=== PATIENT | male | born 1955 | race Caucasian/White ===

== ENCOUNTER 2019-12-21 05:39 | Day surgery (SDC) | payer BC, SELFPAY ==
[2019-12-21] VITALS (7 sets, daily range): BP systolic 110–151; BP diastolic 63–103; PULSE 59–73; RESP 15–18; TEMP 36.3–36.8; O2SAT 94–98; BMI 30.7
[2019-12-21] MEDS: Lactated Ringers 1,000 ML 100 ML IV (06:20)
--- NOTE | 2019-12-21 06:31 | PCM.HP.STD ---
Problem List (1) History of colon polyps Status: Acute History of Present Illness Date of Admission: 12/21/19 The patient is a 64 year old M who has a personal history of colon polyps. December 2016 he had 2 tubular adenomas and 1 sessile serrated polyp removed. He has no family history of colon cancer. He presents via open access today. No abdominal pain. No fever or chills or sweats or cough. He had an intentional 20 pound weight loss a year ago. He otherwise feels well Past Medical History Allergies No Known Allergies Allergy (Verified 12/21/19 06:05) Home Medications: Ambulatory Orders Medication Instructions Recorded Acetaminophen/Diphenhydramine 2 ea PO QHS 12/17/19 [Tylenol Pm Ex-Strength Caplet] Smoking Status: Former smoker Tobacco Use: Non-smoker Review of Systems Constitutional: Denies: Anorexia, Chills, Fever Cardiovascular: Denies: Chest Pain Respiratory: Denies: Cough Gastrointestinal: Denies: Abdominal Pain, Melena Endocrine: Denies: Change in Body Habitus VTE Information - Inpt Only VTE Present on Admission: No Patient Problems: Active and Suspected Problems History of colon polyps (Acute) - Physical Exam Vitals/I&O's: Vital Signs Temp Pulse Resp BP Pulse Ox 98.3 F 73 15 140/83 H 98 12/21/19 06:12 12/21/19 06:12 12/21/19 06:12 12/21/19 06:12 12/21/19 06:12 Oxygen Delivery Method Room Air Weight: 196 lb 6.91 oz Body Mass Index (BMI) 30.7 General: Alert, Oriented x3, Cooperative, No apparent distress HEENT: Atraumatic Oral: Moist Mucosa Lungs: Clear to auscultation, Normal air movement Cardiovascular: Regular rate, Regular Rhythm Abdomen: Bowel Sounds Present, Soft, Non Tender Current Medications Lactated Ringer's () 1,000 mls @ 100 mls/hr IV .Q10H VIDHYA Last Admin: 12/21/19 06:20 Dose: 100 mls/hr Documented by: Assessment/Plan All Active Problems History of colon polyps (Acute) I recommend proceeding with a colonoscopy with possible biopsy or polypectomy is indicated. He is aware of the technique, benefit, risk, alternatives. He has had an opportunity to ask and have questions answered. He presents via our open access program today. Abdoul Morfin M.D., F.A.C.S.
--- NOTE | 2019-12-21 07:24 | OP.COLON_ITS ---
Patient Name: Jamal Franklin Procedure Date: 12/21/2019 6:59 AM Date of : 1955 Age: 64 Procedure: Colonoscopy Indications: High risk colon cancer surveillance: Personal history of colonic polyps Providers: Abdoul Morfin MD Referring MD: Maikel Morfin Iii Medicines: Midazolam 3.5 mg IV, Meperidine 100 mg IV Patient Profile: Last Colonoscopy: December 2016. Complications: No immediate complications. Procedure: Pre-Anesthesia Assessment: - Prior to the procedure, a History and Physical was performed, and patient medications and allergies were reviewed. The patient's tolerance of previous anesthesia was also reviewed. The risks and benefits of the procedure and the sedation options and risks were discussed with the patient. All questions were answered, and informed consent was obtained. Prior Anticoagulants: The patient has taken no previous anticoagulant or antiplatelet agents. ASA Grade Assessment: II - A patient with mild systemic disease. After reviewing the risks and benefits, the patient was deemed in satisfactory condition to undergo the procedure. After I obtained informed consent, the scope was passed under direct vision. Throughout the procedure, the patient's blood pressure, pulse, and oxygen saturations were monitored continuously. The colonoscope was introduced through the anus and advanced to the cecum, identified by appendiceal orifice and ileocecal valve. The colonoscopy was performed without difficulty. The patient tolerated the procedure well. The quality of the bowel preparation was good. The ileocecal valve and the appendiceal orifice were photographed. Moderate Sedation: Moderate (conscious) sedation was personally administered by the endoscopist. The following parameters were monitored: oxygen saturation, heart rate, blood pressure, and response to care. Total physician intraservice time was 15 minutes. Scope In: 7:06:21 AM Scope Withdrawal Time 0 hours 6 minutes 2 seconds Scope Out: 7:15:49 AM Total Procedure Duration Time 0 hours 9 minutes 28 seconds Findings: The digital rectal exam findings include enlarged prostate. Multiple diverticula were found in the sigmoid colon and descending colon. The exam was otherwise without abnormality. Impression: - Enlarged prostate found on digital rectal exam. - Diverticulosis in the sigmoid colon and in the descending colon. - The examination was otherwise normal. - No specimens collected. Recommendation: - Discharge patient to home. - Resume previous diet. - Continue present medications. - Repeat colonoscopy in 5 years for surveillance. Mild prostate enlargement, patient to followup with primary care Procedure Code(s): --- Professional --- G0105, Colorectal cancer screening; colonoscopy on individual at high risk 80480, 59, Moderate sedation services provided by the same physician or other qualified health acute care clinical nurse specialist performing the diagnostic or therapeutic service that the sedation supports, requiring the presence of an independent trained observer to assist in the monitoring of the patient's level of consciousness and physiological status; initial 15 minutes of intraservice time, patient age 5 years or older Diagnosis Code(s): --- Professional --- Z86.010, Personal history of colonic polyps N40.0, Benign prostatic hyperplasia without lower urinary tract symptoms K57.30, Diverticulosis of large intestine without perforation or abscess without bleeding CPT copyright 2017 [employer]. All rights reserved. The codes documented in this report are preliminary and upon art instructor review may be revised to meet current compliance requirements. Abdoul Morfin MD 12/21/2019 7:24:11 AM This report has been signed electronically. Number of Addenda: 0 Note Initiated On: 12/21/2019 6:59 AM
--- NOTE | 2019-12-21 07:25 | OP.CCLET_ITS ---
12/21/2019 Maikel Morfin Iii [address] [place] [address] Re : Colonoscopy procedure for Jamal Callowayz Dear Dr. Morfin This procedure was performed on Saturday, December 21, 2019. My impressions and recommendations are as follows: Impressions : - Enlarged prostate found on digital rectal exam. - Diverticulosis in the sigmoid colon and in the descending colon. - The examination was otherwise normal. - No specimens collected. Recommendations : - Discharge patient to home. - Resume previous diet. - Continue present medications. - Repeat colonoscopy in 5 years for surveillance. Mild prostate enlargement, patient to followup with primary care My findings are described in the full procedure note, which is enclosed. If I can be of further assistance, please feel free to contact me at Doctor phone number(s): Work: . Sincerely, Abdoul Morfin MD 12/21/2019 7:24:11 AM This report has been signed electronically.
== END 2019-12-21 08:07 | disposition home or self-care (01) ==
LOC: EN 05:40 → AC 05:42
PROVIDERS: PCP Family Medicine; Referring Provider Family Medicine; Visit Provider Surgery
PROC: 0DJD8ZZ Inspection of Lower Intestinal Tract, Via Natural or Artificial Opening Endoscopic (ICD-10-PCS; CPT 45378; principal; 2019-12-21 06:55)
DX: Z12.11 Encounter for screening for malignant neoplasm of colon (principal); Z86.010 Personal history of colon polyps; N40.0 Benign prostatic hyperplasia without lower urinary tract symptoms; K57.30 Diverticulosis of large intestine without perforation or abscess without bleeding; Z87.891 Personal history of nicotine dependence
CPT/HCPCS: 45378; 99152; 99153; J7120

== ENCOUNTER → 2024-01-07 | Outpatient (CLI) | payer OTHER, SELFPAY ==
--- NOTE | 2024-01-07 13:06 | NEURO ---
NCS and/or EMG Patient Report Ordering Doctor: Arthur Price DATE OF SERVICE: 01/07/24 Arthur presents for electrodiagnostic testing of the upper limbs. He reports numbness and tingling in both hands. Electrodiagnostic findings: Right median motor nerve demonstrates prolonged distal latency with normal amplitude and reduced conduction velocity. Left median motor nerve demonstrates prolonged distal latency with normal amplitude and conduction velocity. Normal ulnar motor response bilaterally, including conduction across the elbow. Prolonged right median F?wave. Prolonged median sensory latency at the wrist bilaterally. Normal ulnar and radial sensory responses. Needle EMG testing was performed in the upper limbs. All muscles tested showed no evidence of denervation with normal motor unit action potentials. Electrodiagnostic impression: This is an abnormal study in the upper limbs. 1. Electrodiagnostic findings suggestive of bilateral median mononeuropathy. This is consistent with a moderate right and mild left carpal tunnel syndrome. Multi Select Codes Neurology Neurology Interp Codes: 60462-64 Musc test done w/n test comp (interp) (2) and 62278-90 Nrv cndj test 11-12 studies (interp)
== END | disposition home or self-care (01) ==
PROVIDERS: PCP Family Medicine; Referring Provider Family Medicine; Visit Provider Family Medicine
DX: M79.601 Pain in right arm (principal); M79.602 Pain in left arm; R20.0 Anesthesia of skin; R20.2 Paresthesia of skin; M50.122 Cervical disc disorder at C5-C6 level with radiculopathy
CPT/HCPCS: 95886; 95912

== ENCOUNTER 2024-12-17 07:36 | Day surgery (SDC) | payer MEDICARE, SELFPAY ==
[2024-12-17] VITALS (8 sets, daily range): BP systolic 107–133; BP diastolic 70–86; PULSE 60–70; RESP 14–20; TEMP 36.3–36.5; O2SAT 94–99; BMI 31.6
--- NOTE | 2024-12-17 08:18 | PCM.PRE.AN2 ---
ASA Classification* ASA Classification ASA Classification: 2 Assessment & Plan Anesthesia* Anesthesia Assessment Anesthesia Assessment: Discussed sedation and/or anesthesia options, risks, benefits, and alternatives with patient/parents/legal guardian/POA. Questions invited. The patient/parents/legal guardian/POA seems to understand and agrees to proceed with anesthesia plan. Reviewed the physical assessment, medical history, allergy history and patient home medications list prior to surgery/procedure/anesthetic and documented any changes. Performed airway and anesthesia risk assessments. Anesthesia Type Anesthesia Type: MAC Anesthesia Focused Assessment* Temperature: 97.7 F Pulse Rate: 68 Blood Pressure: 133/80 Respiratory Rate: 14 Pulse Ox: 99 Airway Assessment Mouth opens: >3 cm Mallampati Score: II Focused Labs Anesthesia Preop lab: CBC CHEMISTRY COAG Pre-Assessment Diagnosis/Proposed Procedure Planned Operative Procedure(s): COLONOSCOPY Anesthesia History Anesthesia History - library sales consultant: Anesthesia History - library sales consultant Hx Hospitalization No 12/16/24 12:03 Any Problems With Anesthesia No 12/16/24 12:03 Cholinesterase deficiency No 12/16/24 12:03 You/Your Family Experience No 12/16/24 12:03 fever (hyperthermia) with Relationship Recent Exposure to Contagious No 12/17/24 07:54 Disease Does patient have nerve No 12/16/24 12:03 stimulator Patient instructed to have device shut off --Does patient have Pacemaker or ICD? When Was Last Pacemaker Check QUESTION #4 FULL TEXT: You/Your Family Experience fever (hyperthermia) with Anesthesia Last Oral Intake Last Oral intake: Last Oral Intake NPO since 05:00 12/17/24 07:54 Meds taken in AM with sips of No 12/17/24 07:54 water? Meds patient instructed to take am of surgery PONV PONV - library sales consultant: PONV - library sales consultant Female No 12/16/24 12:03 HX of Motion Sickness No 12/16/24 12:03 HX of N/V After Surgery No 12/16/24 12:03 Non-Smoker Yes 12/16/24 12:03 Duration of Surgery greater No 12/16/24 12:03 than 60 minutes Number of Risk Factors 1 12/16/24 12:03 PONV Score Low Risk 12/16/24 12:03 Height & Weight Height & Weight: Anesthesia: Height & Weight Height 5 ft 7 in 12/17/24 07:54 Weight: 91.5 kg 12/17/24 07:54 Body Mass Index (BMI) 31.6 12/17/24 07:54 Respiratory Assessment Respiratory Assessment - library sales consultant: Respiratory Tract Infection Hx - library sales consultant Hx Respiratory Tract Infection No 12/16/24 12:03 STOP Sleep Apnea STOP Sleep Apnea - library sales consultant: STOP Sleep Apnea - library sales consultant Hx Hypertension No 12/16/24 12:03 Hx Sleep Apnea No 12/16/24 12:03 CPAP BIPAP Do you snore loudly (louder No 12/16/24 12:03 than talking or can be heard Do you often feel tired/ No 12/16/24 12:03 fatigued/ sleepy during daytime? Has anyone observed you stop No 12/16/24 12:03 breathing during sleep? STOP Results Negative 12/16/24 12:03 QUESTION #5 FULL TEXT : Do you snore loudly (louder than talking or can be heard through closed doors)? Tobacco Use History Tobacco Use History - library sales consultant: Tobacco Use History - library sales consultant Tobacco Use Smoking Status Never smoker 12/16/24 12:03 Hx Tobacco Use No 12/16/24 12:03 Years Smoking Packs Smoked per Day Smoking Cessation Date was within the last 15 years Hx Smoking Cessation Date Hx Smoking Cessation Counseling Hematologic Medial History Hematologic Hx - library sales consultant: Hematologic Medical Hx - manufacturers service representative Hx of Blood Transfusion No 12/16/24 12:03 Hx of Transfusion in last 3 No 12/16/24 12:03 Months Date of Last Transfusion (if within last 3 months) Ever experience any problems No 12/16/24 12:03 with transfusion(s)? Specify any problems Hx of Preganancy in last 3 N/A 12/16/24 12:03 Months Nurse Filling Out Transfusion VLEHMAN 12/16/24 12:03 & Questions: Date: 12/16/24 12/16/24 12:03 Time: 12:09 12/16/24 12:03 Patient unable to answer at this time (ie. confused, unrespo /Reproduction History /Reproductive History - library sales consultant: /Reproductive Hx- library sales consultant Hx Now No 12/16/24 12:03 Gestational Age (in weeks): EDC: Hx Hx Para Hx Section SAB PFSH Medical History Wears hearing aid Alcohol use Arthritis Non-smoker Home Medications ?Medication ?Instructions ?Recorded ?Last Taken ?Type diphenhydramine 25 2 ea PO QHS 12/17/19 12/15/24 History mg-acetaminophen 500 mg tablet Allergy/AdvReac Type Severity Reaction Status Date / Time No Known Allergies Allergy Verified 12/17/24 07:54 Surgical History Hx of colonoscopy Social History household members: spouse current occupational status: retired Smoking Status: Never smoker substance use type: does not use Review of Systems (Anesthesia) ROS Narrative System reviewed and no additional complaints, except as documented.
--- NOTE | 2024-12-17 08:38 | PCM.HP.STD ---
HPI - General General Date of Admission: 12/17/24 Date of Service: 12/17/24 Chief Complaint: Colonoscopy HPI Narrative HARSH MELVIN, is a 69 M who presents for elective surveillance colonoscopy. Patient has a history of colon polyps. His last colonoscopy was 5 years ago. The colonoscopy was negative for any polyps. He did have polyps in the past. No recent GI issues or complaints. No family history of colon cancer. PFSH Medical History Wears hearing aid Alcohol use Arthritis Non-smoker Home Medications ?Medication ?Instructions ?Recorded ?Last Taken ?Type diphenhydramine 25 2 ea PO QHS 12/17/19 12/15/24 History mg-acetaminophen 500 mg tablet Allergy/AdvReac Type Severity Reaction Status Date / Time No Known Allergies Allergy Verified 12/17/24 07:54 Surgical History Hx of colonoscopy Social History household members: spouse current occupational status: retired Smoking Status: Never smoker substance use type: does not use Vital Signs Vital Signs Vital Signs: 12/17/24 07:54 12/17/24 07:54 12/17/24 08:18 Temperature 97.7 F L 97.7 F L Temperature Source Temporal Pulse Rate 68 68 Respiratory Rate 14 14 Respiratory Pattern Normal Blood Pressure 133/80 H 133/80 H Blood Pressure Mean 97 Blood Pressure Source Monitor Blood Pressure Position Semi-Fowlers Blood Pressure Location Left Arm Pulse Ox 99 99 Oxygen Delivery Method Room Air Weight Weight: 201 lb 11.567 oz Body Mass Index (BMI) 31.6 Physical Exam Const alert, oriented x3 and no apparent distress Assessment & Plan Assessment/Plan (1) History of colon polyps: PLAN: Plan The patient is a 69-year-old male who is being seen today for surveillance colonoscopy. He does have a history of colon polyps. Last colonoscopy was 5 years ago. We discussed the details of the planned procedure as well as risks benefits and alternatives. He wishes to proceed. This will begin momentarily Charges/Coding Visit Charges Inpatient E&M: 84249 Init Hosp L1
--- NOTE | 2024-12-17 09:00 | EGD_PTH ---
PATIENT: HARSH MELVIN LOC: EN U#:[id number] AGE/SX: 69/M ROOM: RE12/17/[address]: Dr. Arturo Patel MD : 1955 BED: DIS: 12/17/2024 SPEC #: [id number] RECD: 12/17/24 13:36 STATUS: KEERTHI REQ #: [id number] ANGÉLICA: 12/17/24 09:[address]: Arturo Patel DEPT: SURGICAL PATHOLOGY RECD BY: Adrian Herrera ENTERED: 12/17/24 13:37 SP TYPE: EGD BIOPSY RUPESH DR: Dr. Arthur Price MD Tissues: A - Sigmoid colon biopsy Procedures: Surgery Specimen Level IV HEADER OPERATION: Colonoscopy with biopsy PRE-OP DIAGNOSIS: Surveillance colonoscopy TISSUE SUBMITTED: A- Sigmoid biopsy MICROSCOPIC DIAGNOSIS A. Sigmoid colon, biopsy: * Tubular adenoma. MICROSCOPIC DESCRIPTION Slides are reviewed. GROSS DESCRIPTION A. Received in fixative is one container labeled with the patient's name and designated Sigmoid biopsy. The specimen consists of one irregular fragment of light ivey soft tissue that measures 0.8 x 0.2 x 0.2 cm. The specimen is totally submitted in one cassette. 12/17/2024 CPT:53762
--- NOTE | 2024-12-17 09:03 | OP.COLON_ITS ---
Patient Name: Jamal Franklin Procedure Date: 12/17/2024 8:35 AM Date of : 1955 Age: 69 Procedure: Colonoscopy Indications: High risk colon cancer surveillance: Personal history of colonic polyps Providers: Arturo Patel MD Referring MD: Arthur Price MD Medicines: Monitored Anesthesia Care Patient Profile: Refer to note in patient chart for documentation of history and physical. Last Colonoscopy: 5 years ago. Complications: No immediate complications. Estimated blood loss: Minimal. Procedure: Pre-Anesthesia Assessment: - Prior to the procedure, a History and Physical was performed, and patient medications and allergies were reviewed. The patient's tolerance of previous anesthesia was also reviewed. The risks and benefits of the procedure and the sedation options and risks were discussed with the patient. All questions were answered, and informed consent was obtained. Prior Anticoagulants: The patient has taken no anticoagulant or antiplatelet agents. ASA Grade Assessment: II - A patient with mild systemic disease. After reviewing the risks and benefits, the patient was deemed in satisfactory condition to undergo the procedure. After I obtained informed consent, the scope was passed under direct vision. Throughout the procedure, the patient's blood pressure, pulse, and oxygen saturations were monitored continuously. The adult colonoscope was introduced through the anus and advanced to the cecum, identified by appendiceal orifice and ileocecal valve. The ileocecal valve, appendiceal orifice, and rectum were photographed. The entire colon was well visualized. The colonoscopy was performed without difficulty. The patient tolerated the procedure well. The quality of the bowel preparation was adequate. Moderate Sedation: See the other procedure note for documentation of moderate sedation with intraservice time. Scope In: 8:45:26 AM Scope Withdrawal Time 0 hours 8 minutes 56 seconds Scope Out: 8:58:32 AM Total Procedure Duration Time 0 hours 13 minutes 6 seconds Findings: The perianal and digital rectal examinations were normal. A 3 mm polyp was found in the sigmoid colon. The polyp was semi-sessile. The polyp was removed with a cold biopsy forceps. Resection and retrieval were complete. Verification of patient identification for the specimen was done by the nurse using the patient's name, date and medical record number. Estimated blood loss was minimal. The exam was otherwise without abnormality on direct and retroflexion views. Impression: - One 3 mm polyp in the sigmoid colon, removed with a cold biopsy forceps. Resected and retrieved. - The examination was otherwise normal on direct and retroflexion views. Recommendation: - Discharge patient to home (ambulatory). - High fiber diet indefinitely. - Await pathology results. - Repeat colonoscopy in 5 years for surveillance. - Return to my office PRN. - Continue present medications. Procedure Code(s): --- Professional --- 02810, Colonoscopy, flexible; with biopsy, single or multiple Diagnosis Code(s): --- Professional --- D12.5, Benign neoplasm of sigmoid colon Z86.010, Personal history of colonic polyps CPT copyright 2021 [employer]. All rights reserved. The codes documented in this report are preliminary and upon electric organ inspector and repairer review may be revised to meet current compliance requirements. Arturo Patel MD 12/17/2024 9:03:27 AM This report has been signed electronically. Number of Addenda: 0 Note Initiated On: 12/17/2024 8:35 AM
--- NOTE | 2024-12-17 09:04 | OP.CCLET_ITS ---
12/17/2024 Arthur Price MD Re : Colonoscopy procedure for Jamal Franklin Dear Dr. Price This procedure was performed on Tuesday, December 17, 2024. My impressions and recommendations are as follows: Impressions : - One 3 mm polyp in the sigmoid colon, removed with a cold biopsy forceps. Resected and retrieved. - The examination was otherwise normal on direct and retroflexion views. Recommendations : - Discharge patient to home (ambulatory). - High fiber diet indefinitely. - Await pathology results. - Repeat colonoscopy in 5 years for surveillance. - Return to my office PRN. - Continue present medications. My findings are described in the full procedure note, which is enclosed. If I can be of further assistance, please feel free to contact me at . Sincerely, Arturo Patel MD 12/17/2024 9:03:27 AM This report has been signed electronically.
--- NOTE | 2024-12-17 09:07 | PCM.POST.ANE ---
Anesthesia: Postop Eval I Current Vital Signs Temperature: 97.3 F Pulse Rate: 69 Blood Pressure: 107/70 Respiratory Rate: 20 Pulse Ox: 95 Oxygen Delivery Method: Room Air Assessment Airway patent: Yes Spontaneous unlabored respirations: Yes Mental status: Awake and Calm nausea: No Vomiting: No Anesthesia Complication: No Fluid Hydration Crystalloid volume administer (ml): 20 Total IV fluid infused: 20 Progress Note Anesthesia document: Postop Eval 1 completed: Yes
--- NOTE | 2024-12-17 09:34 | POSTOPAN2_ITS ---
Anesthesia Postop Eval I Sum Postop Eval Completion status Anesthesia document: Postop Eval 1 completed: Yes Anesthesia Postop Eval I Summary Anesthesia Postop Eval I Summary: Anesthesia Postop Eval I: Assessment Summary Airway patent Yes 12/17/24 09:08 [email or web address] Spontaneous unlabored Yes 12/17/24 09:08 [email or web address] [email or web address] respirations Mental status Awake,Calm 12/17/24 09:08 [email or web address] nausea No 12/17/24 09:08 [email or web address] Vomiting No 12/17/24 09:08 [email or web address] [email or web address] Anesthesia Postop Eval I: Fluid Summary Crystalloid volume administer 20 12/17/24 09:08 [email or web address] (ml) Colloids volume administered ( ml) Blood Product volume administered (ml) Total IV fluid infused 20 12/17/24 09:08 [email or web address] Anesthesia Postop Eval I: Summary Notes Anesthesia Complication No 12/17/24 09:08 [email or web address] Anesthesia Complication Comment: Post-operative progress note Anesthesia: Postop Eval II Evaluation Mental status: Awake Pain Level: 0 nausea: No Vomiting: No
--- NOTE | 2024-12-17 09:34 | PCM.POSTANE2 ---
Anesthesia Postop Eval I Sum Postop Eval Completion status Anesthesia document: Postop Eval 1 completed: Yes Anesthesia Postop Eval I Summary Anesthesia Postop Eval I Summary: Anesthesia Postop Eval I: Assessment Summary Airway patent Yes 12/17/24 09:08 [email or web address] Spontaneous unlabored Yes 12/17/24 09:08 [email or web address] respirations Mental status Awake,Calm 12/17/24 09:08 [email or web address] nausea No 12/17/24 09:08 [email or web address] Vomiting No 12/17/24 09:08 [email or web address] Anesthesia Postop Eval I: Fluid Summary Crystalloid volume administer 20 12/17/24 09:08 [email or web address] (ml) Colloids volume administered ( ml) Blood Product volume administered (ml) Total IV fluid infused 20 12/17/24 09:08 [email or web address] Anesthesia Postop Eval I: Summary Notes Anesthesia Complication No 12/17/24 09:08 [email or web address] Anesthesia Complication Comment: Post-operative progress note Anesthesia: Postop Eval II Evaluation Mental status: Awake Pain Level: 0 nausea: No Vomiting: No
== END 2024-12-17 09:36 | disposition home or self-care (01) ==
LOC: EN 07:37 → AC 07:39
PROVIDERS: PCP Family Medicine; Referring Provider Family Medicine; Visit Provider Surgery
PROC: 0DJD8ZZ Inspection of Lower Intestinal Tract, Via Natural or Artificial Opening Endoscopic (ICD-10-PCS; CPT 45378; principal; 2024-12-17 08:55)
DX: Z12.11 Encounter for screening for malignant neoplasm of colon (principal); D12.5 Benign neoplasm of sigmoid colon; Z86.0100 Personal history of colon polyps, unspecified
CPT/HCPCS: 45380; 88305; A4216